=== PATIENT | female | born 1960 | race Caucasian/White ===

== ENCOUNTER → 2020-06-15 | Outpatient (CLI) | payer OTHER ==
[~2020-06-15] MED LIST: BUPRENORPHIN-N1 EACH SL; CATAPRES 0.1MG0.1 MG PO; CEFUROXIME500 MG PO; COREG 25MG TAB25 MG PO; FLORASTOR250 MG PO; GABAPENTIN800 MG PO; KEFLEX500 MG PO; LOPRESSOR 50 MG50 MG PO; LOSARTAN-HCTZ1 EAC1 PO; PHENYTOIN SODI100 MG PO; VISTARIL 25 MG25 MG PO; ZANAFLEX 4 MG TA4 MG PO; ZOFRAN4 MG PO
[2020-06-15 18:01] LABS: HEMOGLOBIN 9.9 gm/dl (12.3-15.3); RED BLOOD COUNT 3.75 M/UL (4.00-5.10)
[2020-06-15 20:15] LABS: BUN/CREATININE RATIO 17 (0-10)
[2020-06-17 11:14] LABS: HBSAG SCREEN Negative (Negative); HEP A AB, IGM Negative (Negative); HEP B CORE AB, IGM Negative (Negative); HEP C VIRUS AB <0.1 (0.0-0.9)
[2020-06-17 13:14] LABS: ANTISTREPTOLYSIN O AB 71.7 IU/mL (0.0-200.0); RHEUMATOID ARTHRITIS FACTOR <10.0 IU/mL (0.0-13.9)
== END ==
LOC: LAB 16:53
PROVIDERS: Nurse Practitioner Family
DX: Z00.00 Encounter for general adult medical examination without abnormal findings (principal); M19.90 Unspecified osteoarthritis, unspecified site; E78.5 Hyperlipidemia, unspecified; R53.83 Other fatigue; R53.81 Other malaise; I10 Essential (primary) hypertension; M25.50 Pain in unspecified joint; Z79.899 Other long term (current) drug therapy
CPT/HCPCS: 36415; 80053; 80061; 80074; 82150; 83690; 84443; 84550; 85027; 85652; 86038; 86060; 86140; 86431

== ENCOUNTER 2021-12-06 18:52 | Emergency (ER) | payer OTHER ==
[2021-12-06 20:15] LABS: HEMOGLOBIN 9.6 gm/dl (12.3-15.3); RED BLOOD COUNT 3.74 M/UL (4.00-5.10); WHITE BLOOD COUNT 9.7 K/UL (4.5-11.0)
== END 2021-12-07 03:45 | disposition short-term general hospital (02) ==
LOC: ER1 18:52
PROVIDERS: Family Medicine
DX: U07.1 COVID-19 (principal); K75.9 Inflammatory liver disease, unspecified; I10 Essential (primary) hypertension; G40.909 Epilepsy, unspecified, not intractable, without status epilepticus; Z90.49 Acquired absence of other specified parts of digestive tract
CPT/HCPCS: 70450; 71045; 80053; 81001; 82140; 85025; 85610; 96374; 99285; Q9967; U0002